=== PATIENT | male | born 1955 ===

== ENCOUNTER 2016-07-25 11:28 | Emergency (ER) | payer MEDICAID ==
--- NOTE | 2016-07-25 11:56 | ED PDOC ---
HPI: General Adult Time Seen by Provider: 07/25/16 11:52 Chief Complaint (Provider): suprapubic pain History Per: Patient History/Exam Limitations: no limitations Additional Complaint(s): 61yo male on dialysis MWF complaining of suprapubic pain, dysuria since yesterday. No fever. No vomit. Past Medical History Reviewed: Historical Data, Nursing Documentation, Vital Signs Vital Signs: Last Vital Signs Temp 98 F 07/25/16 12:06 Pulse 67 07/25/16 12:06 Resp 19 07/25/16 12:06 BP 154/89 H 07/25/16 12:06 Pulse Ox 99 07/25/16 12:06 - Medical History PMH: Denies: Diabetes - Surgical History Surgical History: No Surg Hx - Family History Family History: States: Unknown Family Hx - Social History Drugs: Denies - Home Medications Home Medications: Ambulatory Orders Medication Instructions Recorded Ciprofloxacin HCl [Cipro] 500 mg PO BID #20 tab 07/25/16 - Allergies Allergies/Adverse Reactions: Allergies Allergy/AdvReac Type Severity Reaction Status Date / Time aspirin Allergy SWELLING Verified 07/25/16 12:06 Review of Systems ROS Statement: Except As Marked, All Systems Reviewed And Found Negative Constitutional: Negative for: Fever Gastrointestinal: Negative for: Vomiting Genitourinary Male: Positive for: Dysuria, Other (suprapubic). Negative for: Hematuria Physical Exam - Reviewed Nursing Documentation Reviewed: Yes Vital Signs Reviewed: Yes - Physical Exam Appears: Positive for: Well, Non-toxic, No Acute Distress Head Exam: Positive for: ATRAUMATIC, NORMAL INSPECTION, NORMOCEPHALIC Skin: Positive for: Warm, Dry Eye Exam: Positive for: EOMI, PERRL Cardiovascular/Chest: Positive for: Regular Rate, Rhythm Respiratory: Positive for: Normal Breath Sounds. Negative for: Rales, Rhonchi, Wheezing Gastrointestinal/Abdominal: Positive for: Soft. Negative for: Tenderness Extremity: Positive for: Normal ROM Medical Decision Making Medical Decision Makin Urine dip, urinalysis, urine culture ordered. Disposition - Clinical Impression Clinical Impression: Urinary tract infection - Patient ED Disposition Is Patient to be Admitted: No - Disposition Disposition: Routine/Home Disposition Time: 13:39 Condition: FAIR Prescriptions: Ciprofloxacin HCl [Cipro] 500 mg PO BID #20 tab Instructions: Urinary Tract Infection in Men (ED) Additional Comments - Additional Comments Additional Comments: Scribe Attestation: Documented by Jose Marley acting as a scribe for Haider Morris MD. Provider Attestation: All medical record entries made by the Scribe were at my direction and personally dictated by me. I have reviewed the chart and agree that the record accurately reflects my personal performance of the history, physical exam, medical decision making, and the department course for this patient. I have also personally directed, reviewed, and agree with the discharge instructions and disposition.
[2016-07-25 12:11] VITALS: BP 154/89; PULSE 67; RESP 19; TEMP 98; O2SAT 99
[2016-07-25 14:27] LABS: GRANULAR CAST 9 /lpf (0-1); RBC URINE 6 /hpf (0-3); URINE BACTERIA MOD (<OCC); URINE BILIRUBIN NEGATIVE (NEGATIVE); URINE BLOOD NEGATIVE (NEGATIVE); URINE COLOR YELLOW (YELLOW); URINE GLUCOSE (UA) 150 mg/dL (Normal); URINE KETONE TRACE mg/dL (NEGATIVE); URINE LEUKOCYTE ESTERASE NEG Leu/uL (Negative); URINE PROTEIN >=500 mg/dL (NEGATIVE); URINE UROBILINOGEN 0.2-1.0 mg/dL (0.2-1.0); WBC URINE 12 /hpf (0-5)
== END 2016-07-25 15:30 | disposition home or self-care (01) ==
LOC: H.ER 11:28 → SUPCPDRO 11:28 → H.ER 15:30
DX: N39.0 Urinary tract infection, site not specified (principal); N18.9 Chronic kidney disease, unspecified